=== PATIENT | female | born 1985 | race Caucasian/White ===

== ENCOUNTER 2021-04-30 01:25 | Inpatient (IN) | payer OTHER ==
[2021-04-30] MEDS ORDERED: DEXTROSE 5%-LACTATED RINGERS 1,000 ML IV SCH (02:05)
[2021-04-30 02:50] LABS: BASO % 0.7 % (0-2.0); EOS % 0.4 % (0-4.5); HEMATOCRIT 34.3 % (32.4-45.2); HEMOGLOBIN 11.7 GM/dL (10.7-15.3); LYMPH % 30.8 % (8-40); MCH 29.9 pg (25.7-33.7); MCHC 34.1 g/dl (32.0-36.0); MEAN CELL VOLUME 87.7 fl (80-96); MEAN PLT VOLUME 8.9 fl (7.5-11.1); MONO % 4.8 % (3.8-10.2); NEUT % 63.3 % (42.8-82.8); PLATELET COUNT 243 10^3/uL (134-434); RBC 3.92 M/mm3 (3.60-5.2); RDW 13.3 % (11.6-15.6); WHITE BLOOD COUNT 8.2 K/mm3 (4.0-10.0)
[2021-04-30] MEDS ORDERED: AMPICILLIN SODIUM 2 GM VIAL ONE (02:57)
[2021-04-30 02:59] LABS: INR 0.9 (0.83-1.09); PROTHROMBIN TIME (PATIENT) 10.5 SEC (9.7-13.0)
[2021-04-30] MEDS ORDERED: AMPICILLIN SODIUM 2 GM VIAL IVPB ONE (03:00)
[2021-04-30 03:13] LABS: CALCIUM 8.5 mg/dL (8.5-10.1)
[2021-04-30 03:14] LABS: BLOOD UREA NITROGEN 6.9 mg/dL (7-18)
[2021-04-30 03:17] LABS: CREATININE 0.4 mg/dL (0.55-1.3)
[2021-04-30 03:20] VITALS: BMI 28.1
[2021-04-30 04:18] LABS: HIV INTERPRETATION NEGATIVE (NEGATIVE)
[2021-04-30] MEDS ORDERED: BUTORPHANOL TARTRATE 1 MG/ML VIAL IVPB PRN ×2 (04:23)
[2021-04-30] MEDS ORDERED: PROMETHAZINE HCL 25 MG/1 ML VIAL IVPUSH ONE (04:23)
[2021-04-30] MEDS ORDERED: OXYTOCIN 30 UNITS in 0.9% NS 30 UNIT/500 ML INFUS.BAG IVPB SCH (04:30)
[2021-04-30] MEDS ORDERED: ELECTROLYTE-148 SOLN 1,000 ML IV SCH (04:30)
[2021-04-30] MEDS ORDERED: OXYTOCIN 30 UNITS in 0.9% NS 30 UNIT/500 ML INFUS.BAG IVPB ONE (04:41)
[2021-04-30] MEDS ORDERED: AMPICILLIN SODIUM 1 GM VIAL ONE (06:30)
[2021-04-30] MEDS: AMPICILLIN SODIUM 1 GM VIAL IVPB SCH ×2 (06:35→11:37)
[2021-04-30] MEDS ORDERED: WITCH HAZEL 50% (TUCKS) 40 PAD/JAR PAD TP PRN (06:49)
[2021-04-30] MEDS ORDERED: BISACODYL 10 MG SUPP.RECT RC PRN (06:49)
[2021-04-30] MEDS ORDERED: METHYLERGONOVINE MALEATE 0.2 MG/1 ML AMP IM PRN (06:49)
[2021-04-30] MEDS ORDERED: BENZOCAINE 28 GM HEMORRHOIDAL OINTMENT TP PRN (06:49)
[2021-04-30] MEDS ORDERED: BENZOCAINE 20% 57 GM BOTTLE TP PRN (06:49)
[2021-04-30] MEDS ORDERED: OXYTOCIN 20 UNITS in 0.9% NS 20 UNIT/1,000 ML INFUS.BAG IV SCH (07:00)
[2021-04-30] MEDS ORDERED: PROMETHAZINE HCL 25 MG/1 ML VIAL ONE (08:44)
[2021-04-30] MEDS ORDERED: BUTORPHANOL TARTRATE 2 MG/ML VIAL ONE (08:44)
[2021-04-30] MEDS: FERROUS SO4 325 MG TABLET (FP) PO SCH ×3 (08:59→17:09)
[2021-04-30] MEDS ORDERED: OXYTOCIN 20 UNITS in 0.9% NS 20 UNIT/1,000 ML INFUS.BAG IV ONE (10:19)
[2021-04-30] MEDS: PRENATAL VITAMINS W/ FOLIC ACID TABLET (FP) PO SCH (11:36)
[2021-04-30] MEDS ORDERED: IBUPROFEN 600 MG TABLET (FP) PO ONE ×2 (11:39→16:17)
[2021-04-30] MEDS: IBUPROFEN 600 MG TABLET (FP) PO PRN ×3 (11:45→20:54)
[2021-04-30 12:36] LABS: CORD BASE EXCESS -3.3 mmol/L (0-2); CORD HCO3 24.5 mmHg (20-29); CORD PCO2 54.5 mmHg (30-78); CORD pH 7.27 (7.14-7.44)
[2021-04-30] MEDS ORDERED: ACETAMINOPHEN 325 MG TABLET (FP) ONE (12:38)
[2021-04-30] MEDS: ACETAMINOPHEN 325 MG TABLET (FP) PO PRN (12:45)
[2021-05-01 06:05] LABS: BASO % 0.3 % (0-2.0); EOS % 0.4 % (0-4.5); HEMATOCRIT 35.2 % (32.4-45.2); HEMOGLOBIN 11.8 GM/dL (10.7-15.3); LYMPH % 29.6 % (8-40); MCHC 33.5 g/dl (32.0-36.0); MEAN CELL VOLUME 89.8 fl (80-96); MONO % 4.5 % (3.8-10.2); NEUT % 65.2 % (42.8-82.8); PLATELET COUNT 252 10^3/uL (134-434); RBC 3.92 M/mm3 (3.60-5.2); RDW 13.5 % (11.6-15.6); WHITE BLOOD COUNT 8.6 K/mm3 (4.0-10.0)
[2021-05-01] MEDS: ACETAMINOPHEN 325 MG TABLET (FP) PO PRN (09:03)
[2021-05-01] MEDS: PRENATAL VITAMINS W/ FOLIC ACID TABLET (FP) PO SCH (10:43)
[2021-05-01] MEDS: FERROUS SO4 325 MG TABLET (FP) PO SCH ×3 (10:43→17:54)
[2021-05-01] MEDS ORDERED: SENNOSIDES/DOCUSATE COMBO (SENNA PLUS) TABLET (UD) PO PRN (22:00)
[2021-05-02] MEDS: FERROUS SO4 325 MG TABLET (FP) PO SCH (08:27)
[2021-05-02] MEDS: PRENATAL VITAMINS W/ FOLIC ACID TABLET (FP) PO SCH (09:13)
[2021-05-02] MEDS: IBUPROFEN 600 MG TABLET (FP) PO PRN (09:14)
[2021-05-02 09:49] VITALS: BP 112/76; PULSE 73; TEMP 98.3
== END 2021-05-02 13:12 | disposition home or self-care (01) | DRG 560 ==
LOC: JDEL 01:25 → JLDR 02:05 → J3W 16:34
PROVIDERS: ADMIT Obstetrics & Gynecology; ATTEND Obstetrics & Gynecology
PROC: 10E0XZZ Delivery of Products of Conception, External Approach (ICD-10-PCS; principal; 2021-04-30)
DX: O80 Encounter for full-term uncomplicated delivery (principal); Z3A.38 38 weeks gestation of pregnancy; Z37.0 Single live birth
CPT/HCPCS: 36415; 36600; 59409; 80048; 82803; 85025; 85610; 85730; 86780; 86850; 86900; 86901; 87389; C9803; U0003; U0005

== ENCOUNTER 2021-11-04 04:12 | Day surgery (SDC) | payer OTHER ==
[2021-11-03 08:35] VITALS: BMI 26.2
[2021-11-04] MEDS ORDERED: DEXAMETHASONE SOD PHOSPHATE 4 MG/1 ML VIAL ONE (07:46)
[2021-11-04] MEDS ORDERED: GLYCOPYRROLATE 0.2 MG/1 ML VIAL ONE (07:46)
[2021-11-04] MEDS ORDERED: PROPOFOL 20 ML ONE ×3 (07:47)
[2021-11-04] MEDS ORDERED: ROCURONIUM BROMIDE 50 MG/5 ML SYRINGE ONE (07:49)
[2021-11-04] MEDS ORDERED: NEOSTIGMINE METHYLSULFATE 0.5 MG/ML - 10 ML MDV ONE (07:49)
[2021-11-04] MEDS ORDERED: MIDAZOLAM HCL 2 MG/2 ML SINGLE DOSE VIAL ONE (07:51)
[2021-11-04] MEDS ORDERED: ceFAZolin SODIUM 1 GM VIAL IVPB ONE (08:10)
[2021-11-04] MEDS ORDERED: ALBUTEROL SO4 HFA INHALER IH ONE (09:23)
[2021-11-04] MEDS ORDERED: LACTATED RINGERS SOLUTION 1,000 ML IV SCH (09:45)
[2021-11-04] MEDS ORDERED: oxyCODONE HCL 5 MG TABLET PO ONE (11:09)
[2021-11-04] MEDS ORDERED: ONDANSETRON 4 MG/2 ML VIAL ONE (12:43)
[2021-11-04] MEDS ORDERED: ONDANSETRON 4 MG/2 ML VIAL IVPUSH ONE (12:47)
[2021-11-04 14:55] VITALS: BP 101/56; PULSE 85; TEMP 98.2
== END 2021-11-04 14:35 | disposition home or self-care (01) ==
LOC: JASU-SURG 04:12
PROVIDERS: ATTEND Specialist
PROC: 0UT74ZZ Resection of Bilateral Fallopian Tubes, Percutaneous Endoscopic Approach (ICD-10-PCS; principal; 2021-11-04 08:00)
DX: Z30.2 Encounter for sterilization (principal)
CPT/HCPCS: 81025; 88302-TC; 94760